=== PATIENT | male | born 1975 | race African-American/Black ===

== ENCOUNTER 2020-03-08 18:26 | Emergency (ER) | payer OTHER | END 2020-03-08 19:20 | disposition home or self-care (01) | LOC: ERS 18:26 | DX: M54.6 Pain in thoracic spine (principal); E11.9 Type 2 diabetes mellitus without complications; I10 Essential (primary) hypertension; F17.290 Nicotine dependence, other tobacco product, uncomplicated; V89.2XXA Person injured in unspecified motor-vehicle accident, traffic, initial encounter | CPT/HCPCS: 99283 ==